=== PATIENT | female | born 1995 | race African-American/Black ===

== ENCOUNTER 2017-03-28 23:06 | Emergency (ER) | payer OTHER ==
[2017-03-28 23:40] VITALS: BP 114/77; PULSE 90; RESP 16; O2SAT 97
[2017-03-28 23:48] VITALS: BP 114/77; PULSE 90; RESP 16; O2SAT 97
--- NOTE | 2017-03-28 23:49 | ED.REPORT ---
HPI-Rash / Abscess Date of Service Mar 28, 2017 ED Provider: Wilbert Ruiz DO Pt is an otherwise healthy 21 year old female who presents to the ED complaining of a rash onset 3 days ago. She c/o associated right groin pain and swelling. She denies any other symptoms. The pt reports that she did not shave in the area, but she has used scissors to cut hair in the area. Nursing Notes Stated Complaint: PAINFUL LUMP PUBIC AREA Chief Complaint: Skin Rash/Abscess Nursing Notes Reviewed: Yes Allergies: Coded Allergies: No Known Allergies (Unverified , 03/28/17) General Time Seen by MD: 23:49 Chief Complaint Rash Hx Obtained From: Patient Arrived By: Walk-in Onset Occurred: 3 days ago Symptom Duration: Since onset Location: : Other (right groin) Quality: Painful Severity: Current: Moderate Severity: Maximum: Moderate Recent Healthcare: No recent doctor visit, No recent hospitalization Similar Sx Previous: No Past Medical History Past Medical History None reported - healthy Past Surgical History Denies Smoking History Unknown if Ever Smoker Social History Alcohol Use: "Social" Drug Use: Denies drug use Other Social History: Good social support Ambulatory Status Independent Review of Systems + inguinal pain Constitutional: Denies: Fever Respiratory: Denies: Non-productive cough Skin: Reports Rash, Reports Swelling Complete sys rev & neg: except as marked. Physical Exam Initial Vital Signs Vital Signs (First) Date Time Temp Pulse Resp B/P Pulse Ox O2 Delivery O2 Flow Rate FiO2 03/28/17 23:40 37.0 90 16 114/77 97 Room Air Initial VS: Reviewed Head / Eyes: Atraumatic, Normocephalic Neck: Supple, Full range of motion Respiratory: Breath sounds normal, Clear to auscultation, No respiratory distress Cardiovascular: Regular rate & rhythm, Heart sounds normal, Intact distal pulses Abdomen / GI: Soft, Non-tender Extremities: Vascular intact, Neuro intact Neurologic: Alert, Oriented, Nonfocal Psychiatric: Mood/affect normal, Behavior normal General/Constitutional: Awake, Alert Skin: Warm, Dry Cellulitis without abscess and regional inguinal lymphadenopathy. Interpretation & Diagnostics Lab Results Interpretation Test 03/29/17 00:02 Hold Urine Received (Received) Re-Eval/Medical Decision Med Decision/Clinical Course Well-demarcated cellulitis. This may represent erysipelas. She is breast- feeding so we will treat it similar to mastitis with oral dicloxacillin. She has never had MRSA and she does not have MRSA risk factors. Have a wound check couple of days. Short course of opiates provided for pain. It was recommended that she not breast-feed while taking the opiates. Source of Hx: Old records Re-Evaluation/Progress : Time of Eval: 23:58 Re-Evaluation/Progress Note: Informed pt of plan for discharge. Pt understands and agrees with plan for discharge. F/U instructions and RTER warnings given. All questions addressed. Counseled Regarding: Diagnosis, Need for follow-up, When/why to return to ED Discharge & Departure Impression: Primary Impression: Cellulitis Site of cellulitis: other site Qualified Code: L03.818 - Cellulitis of other sites Disposition: Home Discharge Condition All VS Reviewed: Yes Condition: Stable Patient Instructions: Cellulitis (ED) Additional Instructions: Take Dicloxacillin for 4x for 7 days. This is compatible with breast feeding. [place] 1-2 every 6 hours as needed for the pain. Do not drive or drink alcohol or consume acetaminophen while on [place]. Do not breast feed within 6 hours of taking the [place]. Pump the breast and dump the milk. You may need to supplement with formula. Take 1 Zofran every 8 hours for nausea that these medications might cause. Come back for a recheck in 72 hours. A warm compress may help. If the cellulitis becomes an abscess (ie. localized swelling with fluid) it will need to be drained. If your symptoms are not improved in 24-48 hours return to the Emergency Department for a recheck or schedule a follow-up appointment with your primary care provider next week. Referrals: KENNETH (PCP) Adrian Attestation Portions of this note were transcribed by Yesica Carlin. I, Dr. Ruiz personally performed the history, physical exam and medical decision-making; I reviewed and confirmed the accuracy of the information in the transcribed note. Signed by : Adrian Mtz, 03/28/17. copies to: Wilbert Ray DO Mar 28, 2017 23:49 Yesica Townsend Mar 29, 2017 00:02
[2017-03-29] MEDS ORDERED: HYDROcodone-APAP 5-325 mg Tablet PO ONE (00:10)
[2017-03-29 00:42] VITALS: BP 114/77; PULSE 90; RESP 16; O2SAT 97
== END 2017-03-29 00:43 | disposition home or self-care (01) ==
LOC: SED 23:06
DX: L03.818 Cellulitis of other sites (principal)

== ENCOUNTER 2017-04-06 12:02 | Emergency (ER) | payer OTHER ==
[~2017-04-06] VITALS: Ht 175.3 cm; Wt 90.9 kg
[2017-04-06 12:09] VITALS: BP 115/78; PULSE 77; RESP 16; O2SAT 99
--- NOTE | 2017-04-06 12:29 | ED.REPORT ---
HPI-Rash / Abscess Date of Service Apr 06, 2017 ED Provider: Anne-Marie Douglas History of Present Illness: infection on right leg, given antibiotics taking 3 times a days, dicaloxacillin, normally healthy, nursing 4 month old baby. primary care [facility] [employer], draining already Nursing Notes Stated Complaint: POSSIBLE SKIN INFECTION Chief Complaint: Skin Rash/Abscess Nursing Notes Reviewed: Yes Allergies: Coded Allergies: No Known Allergies (Unverified , 04/06/17) General Time Seen by MD: 12:22 Chief Complaint Rash Hx Obtained From: Patient Onset Occurred: More than a week ago... (2 weeks) Past Medical History Past Medical History None reported - healthy Past Surgical History Denies Smoking History Never Smoker Social History Alcohol Use: "Social" Drug Use: Denies drug use Other Social History: Good social support, Occupation in the [employer] 04/06/2017 Ambulatory Status Independent Review of Systems Basic Review of Systems : No dysuria, No frequency Neurologic: NL mental status, No weakness, No numbness Psychiatric: Normal thought content Physical Exam Initial Vital Signs Vital Signs (First) Date Time Temp Pulse Resp B/P Pulse Ox O2 Delivery O2 Flow Rate FiO2 04/06/17 12:09 37.0 77 16 115/78 99 Room Air Initial VS: Reviewed, Vital signs normal Head / Eyes: Atraumatic, Normocephalic, PERRL ENT: Mucous membranes moist, Conjunctiva normal, No scleral icterus Neck: Supple, Non-tender, Full range of motion Respiratory: Breath sounds normal, Clear to auscultation, No respiratory distress Cardiovascular: Regular rate & rhythm, Heart sounds normal, Intact distal pulses Abdomen / GI: Soft, Non-tender, No guarding, No rebound, No distention Back: No CVA tenderness Lymphatic: No lymphadenopathy Extremities: Vascular intact, Neuro intact, No swelling, No tenderness Neurologic: Alert, Oriented, Nonfocal Psychiatric: Mood/affect normal, Behavior normal, Normal thought content General/Constitutional: Awake, Alert, No acute distress, Well appearing, Well developed, Well hydrated, Well nourished, Cooperative, Not toxic appearing Skin: Atraumatic, Color NL Rash / Lesion Notes: site of draining small abscess on right upper thigh Procedures Incision & Drainage Abscess Time: 14:00 Procedure Performed by: Allied health pract Consent / Setup / Site Prep: Informed consent provided, Consent from patient , Standard surgical scrub, Sterile drapes applied Skin Preparation Agent: Betadine Local Anesthesia: Lidocaine 1%, 4cc, 27g needle Incised Abscess with Scalpel: #11 Pus Drained: Small, Purulent discharge Irrigation: 200 cc Post-Procedure / Complications: Packing placed, Dressing applied, No complications, Condition improved, Tolerated procedure well, Patient stable Re-Eval/Medical Decision Med Decision/Clinical Course 21 year old female presents for evualation of draing site on her right upper thigh. Patient has been on antibiotics occasionally, is nursing her 4 month son. Site has clearly decreased but does have 3 to 4 -1 mm papules.Site opened and small amount green discharge is expressed. Site is packed and [facility]. No sign of cellulits or large abscess Discharge & Departure Impression: Primary Impression: Abscess Disposition: Home Patient Instructions: Abscess (ED) Additional Instructions: There was a small abscess on your right upper thigh that was opened with a small amount of discharge out. You can remove the packing in two days. Use warm packs 3 times a day for 15 minutes each time for 4 days. After removing the packing use bacitracin to the site 2 to 3 times a day. [facility] for a recheck on Wednesday. Referrals: NOPCP (PCP) EDSupervising Provider for APC: Palomo Jones DO copies to: OTHER,PHYSICIAN Anne-Marie Douglas Apr 06, 2017 12:29
--- NOTE | 2017-04-06 12:31 | ED.REPORT ---
HPI-Rash / Abscess Date of Service Apr 06, 2017 ED Provider: Nursing Notes Stated Complaint: POSSIBLE SKIN INFECTION Chief Complaint: Skin Rash/Abscess Allergies: Coded Allergies: No Known Allergies (Unverified , 04/06/17) General Time Seen by MD: 12:22 Past Medical History Past Medical History None reported - healthy Past Surgical History Denies Smoking History Unknown if Ever Smoker Social History Alcohol Use: "Social" Drug Use: Denies drug use Other Social History: Good social support Ambulatory Status Independent Physical Exam Initial Vital Signs Vital Signs (First) Date Time Temp Pulse Resp B/P Pulse Ox O2 Delivery O2 Flow Rate FiO2 04/06/17 12:09 37.0 77 16 115/78 99 Room Air Discharge & Departure Referrals: [facility]OP[facility] (PCP) Anne-Marie Douglas Apr 06, 2017 12:31
== END 2017-04-06 14:33 | disposition home or self-care (01) ==
LOC: SED 12:02
DX: L02.415 Cutaneous abscess of right lower limb (principal)